=== PATIENT | female | born 1930 | race Caucasian/White ===

== ENCOUNTER → 2017-03-17 | Outpatient (CLI) | payer OTHER, BC ==
[~2017-03-17] MED LIST: ACET-1311 PO; AMLO-110 PO; ASPEC81 PO; CHOL100010 PO; HYZ/50125 PO; LEVO75TA33 PO; METO25TA56 PO; MULT-190 PO; PRLSR20 PO; SIMV20TA2 PO; SYMIN160 INH; TRAM-10 PO
--- NOTE | 2017-03-17 14:27 | DIAGNOSTIC IMAGING REPORT ---
LEG LENGTH STUDY (WHOLE LEG) CLINICAL HISTORY: LEG LENGTH DISCREPANCY, LUMBAGO COMPARISON STUDY: No previous studies for comparison. FINDINGS: When measuring from the femoral heads to the tibial plafonds, the right leg measures 87.6 cm and the left leg measures 87.5 cm. A right knee arthroplasty is noted. No suspicious osseous lesion is identified within visualized skeletal structures. No fracture is identified. IMPRESSION: 1. Total right leg length of 87.6 cm and total left leg length of 87.5 cm. 2. Status post total right knee arthroplasty. Electronically signed by: Jamel Naik M.D. 03/17/2017 2:26 PM Dictated Date/Time: 03/17/2017 2:22 PM
== END | disposition home or self-care (01) ==
LOC: C.RADBC 14:02
PROVIDERS: ATTEND Physician Assistant
DX: M21.70 Unequal limb length (acquired), unspecified site (principal); M54.5 Low back pain

== ENCOUNTER 2020-01-22 17:32 | Inpatient (IN) ==
--- NOTE | 2020-01-22 20:18 | XRay Report ---
SINGLE VIEW CHEST CLINICAL HISTORY: Hypertension. FINDINGS: An AP, portable, upright chest radiograph is compared to study dated 07/09/2010. The examinat ion is degraded by portable technique and patient rotation. The heart is top normal for projection n oting atherosclerotic calcification of the thoracic aorta. The pulmonary vasculature is noncongested. Chronic interstitial thickening is similar to previous. There is mild bibasilar scarring/atelectasis . The lungs and pleural spaces are otherwise clear. No pneumothorax is seen. The skeletal structures are osteopenic. The bony thorax is grossly intact. IMPRESSION: No active disease in the chest. ACT 112: Negative or not required by law. Electronically signed by: Benito Walter M.D. 01/22/2020 8:16 PM
[2020-01-22 21:13] LABS: Basophils # (auto) 0.02 K/uL (0-0.2); Basophils % (auto) 0.2 %; Eosinophils # (auto) 0.07 K/uL (0-0.5); Eosinophils % (auto) 0.6 %; Hematocrit (blood only) 39.1 % (37-47); Hemoglobin 13.1 g/dL (12.0-16.0); Immature Granulocytes # (auto) 0.03 K/uL (0.00-0.02); Immature Granulocytes % (auto) 0.3 %; Lymphocytes # (auto) 1.35 K/uL (1.2-3.4); Mean Corpuscular Hgb Conc 33.5 g/dL (32-36); Mean Corpuscular Volume 89.5 fL (80-100); Mean Platelet Volume 9.4 fL (7.4-10.4); Monocytes # (auto) 0.88 K/uL (0.11-0.59); Monocytes % (auto) 7.8 %; Neutrophils # (auto) 8.87 K/uL (1.4-6.5); Neutrophils % (auto) 79.1 %; Platelet Count 379 K/uL (130-400); RDW Coefficient of Variation 14.5 % (11.5-14.5); RDW Standard Deviation 47.7 fL (36.4-46.3); Red Blood Count 4.37 M/uL (4.2-5.4); White Blood Count 11.22 K/uL (4.8-10.8)
--- NOTE | 2020-01-22 21:13 | Emergency Department Note ---
Impression & Plan Hypertensive urgency, Acute UTI, Weakness, Leg swelling, Deep vein thrombosis of bilateral lower extremities ED Provider Note Provider: Rafael Leslie MD DATE OF SERVICE: 01/22/2020 CHIEF COMPLAINT: Hypertension, weakness HISTORY OF PRESENT ILLNESS: Patient is a 89-year-old female presenting here today complaining of some generalized weakness and elevated blood pressure. Patient states over the last several months she has been fighting with elevated blood pressures. For a long time was maintained on amlodipine. I was having some leg swelling and this was decreased but swelling worsened. Increase back to a baseline of 5 mg amlodipine and more recently started on Lasix. Has taken extra dose of Lasix every day for the last 4 days still with significant swelling left greater than right. Denies chest pain or shortness of breath. Denies trauma. Denies near syncope. Denies headache. Patient relates just some generalized fatigue type symptoms. Patient had a blood pressure check her doctor's office and came here for further care. REVIEW OF SYSTEMS: A total of 10 review of systems was obtained and negative except as stated above in the HPI. PAST MEDICAL HISTORY: As noted above MEDICATIONS: Reviewed home medications, no blood thinners SOCIAL HISTORY: Lives by herself, non-smoker PHYSICAL EXAM: GENERAL: alert and oriented in no acute distress on stretcher Head: normocephalic and atraumatic EYES: No injection, discharge or icterus. PERRL. NECK: Trachea midline. Supple. ENT: Mucous membranes pink and moist. LUNGS: Airway patent. No retractions. Breath sounds clear HEART: Regular rate and rhythm. No chest wall tenderness ABDOMEN: Soft and non-tender, without guarding or rebound. SKIN: Acyanotic, warm, dry, without rashes EXTREMITIES: Patient has 3+ swelling of the left lower extremity on 1-2+ right lower extremity. This extends to the knees. Does have stocking on over top of this. NEUROLOGICAL: No focal deficits. No aphasia. No facial droop or slurred speech. Normal strength and tone in the extremities. Sensation to gross touch normal. Ambulatory. EKG: Normal sinus rhythm 83 bpm. No PVC. No ST segment elevation or depression. Normal axis. Normal QTC. CONTINUOUS CARDIAC MONITORING: was ordered and showed a heart rate of 90 bpm in normal sinus rhythm Patient's hypertension was referred to the [facility] COURSE: 1944 Patient was first seen and H&P performed. 2027 Patient reassessed and updated. Patient was agreed with the plan for further observation care here in the hospital. [address] Rivera of the hospitalist service. Patient's laboratory studies and imaging reviewed. Differential includes Infection, dehydration, metabolic abnormality, hypo/hyperglycemia, electrolyte disturbance, anemia, hypoxia, cardiac sources, intracerebral event, toxicologic, neurologic, as well as other pathologies. IMPRESSION/MEDICAL DECISION MAKING: Patient presents complaining of generalized weakness for several days and has been utilize increased Lasix to help with some leg swelling which is a bit asymmetric. No trauma reported. No focal neurological deficits reported. Denies shortness of breath or chest pain. Patient's blood pressure significantly elevated. Chest x-ray is left without evidence of pulmonary edema. Ultrasound lower extremities to complete exclude DVT here. I doubt acute CVA or intracranial hemorrhage given her complaints. EKG without significant findings. Basic laboratory studies were ordered including thyroid studies to look for possible abnormality. Urine sample with some epithelials but questionable for possible UTI and may explain her weakness. Empirically given a dose of ceftriaxone here. No significant leukocytosis and no anemia. Do not believe she is septic. Albumin is not significantly low. Some CKD is appreciable. Ultrasound does show bilateral DVTs as noted below. Will defer anticoagulation to the hospitalist team but informed the patient. Given a small amount labetalol due to the significant blood pressure elevation. DIAGNOSIS: Weakness, hypertension, acute UTI, bilateral lower leg DVT DISPOSITION: Hospitalist will evaluate Patient was agreeable with this plan. Preliminary Findings Only See Final Report For Complete Findings US VENOUS BILATERAL LOWER EXTREMITIES: Small occlusive DVT in the right peroneal vein. Small nonocclusive DVT in the left peroneal vein. Radiologist: Flavio Mackey MD Study ready at 22:18 and initial results transmitted at 22:20 Past Med/Surg History Family History (Updated 09/04/19 @ 13:31 by Opal Parsons) Father Hearing loss Other No family history of adverse response to anesthesia No family history of bleeding disorder Social History (Updated 09/04/19 @ 13:32 by Opal Parsons) Smoking Status: Never smoker Second Hand Exposure: No; Hx Alcohol Use: No Hx Substance Use: No Preferred Language: Barbadian Communication Ability: Effective Visual Impairment: No Limitations Hearing Ability: Normal Wireline Field Operator Required: No Beliefs That Will Affect Care: None Current Living Situation: Alone current occupational status: retired 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 Home Meds Home Medications Medication Instructions Recorded Confirmed amlodipine 2.5 mg PO BID 04/05/18 01/22/20 budesonide-formoterol [Symbicort] 2 puff INHALATION HS 04/05/18 01/22/20 cholecalciferol (vitamin D3) 1,000 unit PO QAM 04/05/18 01/22/20 [Vitamin D3] levothyroxine 75 mcg PO QAM 04/05/18 01/22/20 omeprazole 20 mg PO QAM 04/05/18 01/22/20 biotin 1 mg capsule 1 mg PO DAILY 08/04/19 01/22/20 furosemide 20 mg PO DAILY PRN 01/22/20 01/22/20 peg 400-propylene glycol (PF) 1 drp OPHTHALMIC (EYE) DIRECTED 01/22/20 01/22/20 [Systane (PF)] PRN potassium chloride [Klor-Con M20] 20 meq PO DAILY 01/22/20 01/22/20 vit C-E-zinc [id number] 2 tab PO DAILY 01/22/20 01/22/20 [Ocuvite Eye Health] Results & Data (ED) Vital Signs Vital Signs - 24 hr 01/22/20 17:36 01/22/20 22:19 01/22/20 22:34 Temperature 37.2 C Temperature Source Oral Pulse Rate 88 90 91 H Pulse Rate from SpO2 Sensor 90 91 H Respiratory Rate 20 22 20 Respiratory Effort / Characteristics Non-Labored Spontaneous Respiratory Depth Normal Respiratory Pattern Regular Blood Pressure 202/84 H 219/104 H 215/100 H Blood Pressure Mean 123 152 138 Blood Pressure Position Sitting Pulse Oximetry 96 98 Oxygen Delivery Method Room Air Sepsis Recent Fever Within 48 Hours No Sepsis New/Unexplained Change in Mental Status N/A Sepsis Action Taken by Nursing No Action Required Laboratory Data Result diagrams: 01/22/20 21:00 01/22/20 21:00 Lab Results 01/22/20 01/22/20 01/22/20 Range/Units 21:00 21:00 21:00 WBC 11.22 H (4.8-10.8) K/uL RBC 4.37 (4.2-5.4) M/uL Hgb 13.1 (12.0-16.0) g/dL Hct 39.1 (37-47) % MCV 89.5 (80-100) fL MCH 30.0 (25-34) pg MCHC 33.5 (32-36) g/dL RDW Std Deviation 47.7 H (36.4-46.3) fL RDW Coeff of Dara 14.5 (11.5-14.5) % Plt Count 379 (130-400) K/uL MPV 9.4 (7.4-10.4) fL Immature Gran % (Auto) 0.3 % Neut % (Auto) 79.1 % Lymph % (Auto) 12.0 % [place] % (Auto) 7.8 % Eos % (Auto) 0.6 % Baso % (Auto) 0.2 % Neut # (Auto) 8.87 H (1.4-6.5) K/uL Lymph # (Auto) 1.35 (1.2-3.4) K/uL [place] # (Auto) 0.88 H (0.11-0.59) K/uL Eos # (Auto) 0.07 (0-0.5) K/uL Baso # (Auto) 0.02 (0-0.2) K/uL Immature Gran # (Auto) 0.03 H (0.00-0.02) K/uL Sodium 134 L (136-145) mmol/L Potassium 4.4 (3.5-5.1) mmol/L Chloride 99 (98-107) mmol/L Carbon Dioxide 30 (21-32) mmol/L Anion Gap 5.0 (3-11) BUN 37 H (7-18) mg/dl Creatinine 1.30 H (0.6-1.2) mg/dl Est Cr Clr Drug Dosing 25.3 ml/min Est GFR ( Amer) 42.1 Est GFR (Non-Af Amer) 36.3 BUN/Creatinine Ratio 28.2 H (10-20) Glucose 121 H (70-99) mg/dl Calcium 10.7 H (8.5-10.1) mg/dl Magnesium 2.0 (1.8-2.4) mg/dl Total Bilirubin 0.8 (0.2-1) mg/dl AST 15 (15-37) U/L ALT 21 (12-78) U/L Alkaline Phosphatase 88 (45-117) U/L Troponin I < 0.015 (0-0.045) ng/ml NT-Pro-B Natriuret Pep 673 (0-1800) pg/ml Total Protein 8.0 (6.4-8.2) gm/dl Albumin 3.9 (3.4-5.0) gm/dl Globulin 4.1 H (2.5-4.0) gm/dl Albumin/Globulin Ratio 1.0 (0.9-2) TSH 1.080 (0.300-4.500) uIu/ml Urine Color Yellow Urine Appearance Clear (Clear) Urine pH 5.0 (4.5-7.5) Ur Specific [place] 1.013 (1.000-1.030) Urine Protein Negative (Negative) Urine Glucose (UA) Negative (Negative) Urine Ketones Negative (Negative) Urine Blood Negative (Negative) Urine Nitrite Negative (Negative) Urine Bilirubin Negative (Negative) Urine Urobilinogen Negative (Negative) Ur Leukocyte Esterase 2+ H (Negative) Urine WBC (Auto) >30 H (0-5) /hpf Urine RBC (Auto) 0-4 (0-4) /hpf U Hyaline Cast (Auto) 1-5 (0-5) /lpf U Epithel Cells (Auto) 20-30 H (0-5) /lpf Urine Bacteria (Auto) Negative (Negative) Discharge Plan Visit Data Chief Complaint: Hypertension Stated Complaint: high bp ED Provider: Rafael Leslie Discharge Problem: Hypertensive urgency, Acute UTI, Weakness, Leg swelling, Deep vein thrombosis of bilateral lower extremities Patient Disposition: Being Evaluated by Hospitalist Condition: Good Forms Stand Alone Forms: My KTM Advance Prescriptions Prescriptions: No Action biotin 1 mg capsule 1 mg PO DAILY RF: 0 amlodipine 2.5 mg Tablet 2.5 mg PO BID RF: 0 levothyroxine 75 mcg Tablet 75 mcg PO QAM RF: 0 cholecalciferol (vitamin D3) [Vitamin D3] 1,000 unit Tablet 1,000 unit PO QAM RF: 0 budesonide-formoterol [Symbicort] 160-4.5 mcg/actuation Hfa Aerosol Inhaler 2 puff INHALATION HS RF: 0 omeprazole 20 mg Tablet,Delayed Release (Dr/Ec) 20 mg PO QAM RF: 0 potassium chloride [Klor-Con M20] 20 mEq tablet,ER particles/crystals 20 meq PO DAILY RF: 0 furosemide 20 mg tablet 20 mg PO DAILY PRN (Reason: Edema) RF: 0 Systane (PF) 0.4-0.3 % [place] 1 drp OPHTHALMIC (EYE) DIRECTED PRN (Reason: Dry Eyes) RF: 0 Ocuvite Eye Health 50 mg-15 unit- 4.5 mg-2.5 mg Tablet,Chewable 2 tab PO DAILY RF: 0 Referrals Referrals: Rudi Carter MD [Primary Care Provider] - Discharge Problem: Deep vein thrombosis of bilateral lower extremities Qualifiers: Affected thrombotic vein of extremity: peroneal Chronicity: acute Qualified Code(s): I82.453 - Acute embolism and thrombosis of peroneal vein, bilateral
[2020-01-22 21:15] LABS: Appearance Urine Clear (Clear); Bacteria Urine Automated Negative (Negative); Bilirubin Urine Negative (Negative); Blood Urine Negative (Negative); Color Urine Yellow; Epithelial Cell Urine Auto 20-30 /lpf (0-5); Glucose Urine UA Negative (Negative); Ketones Urine Negative (Negative); Leukocyte Esterase Urine 2+ (Negative); Nitrite Urine Negative (Negative); Protein Urine Negative (Negative); RBC Urine Automated 0-4 /hpf (0-4); Specific Gravity Urine 1.013 (1.000-1.030); Urobilinogen Urine Negative (Negative); WBC Urine Automated >30 /hpf (0-5)
[2020-01-22 21:34] LABS: Alanine Aminotransferase 21 U/L (12-78); Albumin Level 3.9 gm/dl (3.4-5.0); Aspartate Aminotransferase 15 U/L (15-37); BUN Creatinine Ratio 28.2 (10-20); Blood Urea Nitrogen 37 mg/dl (7-18); Calcium 10.7 mg/dl (8.5-10.1); Carbon Dioxide 30 mmol/L (21-32); Chloride 99 mmol/L (98-107); Creatinine Clr Calc Pharmacy 25.3 ml/min; Est GFR (African American) 42.1; Est GFR (Non-African American) 36.3; Glucose 121 mg/dl (70-99); Potassium 4.4 mmol/L (3.5-5.1); Sodium 134 mmol/L (136-145)
[2020-01-22 21:45] LABS: Alkaline Phosphatase 88 U/L (45-117); Bilirubin,Total 0.8 mg/dl (0.2-1); Globulin 4.1 gm/dl (2.5-4.0); NT Pro B Type Natriuretic Pept 673 pg/ml (0-1800); Troponin I < 0.015 ng/ml (0-0.045)
[2020-01-22] MEDS ORDERED: cefTRIAXone SODIUM 1,000 MG/50 ML BAG IV STA (22:28)
[2020-01-22] MEDS ORDERED: LABETALOL HCL IV 5 MG/ML 20ML IV STA (22:28)
[2020-01-22] MEDS ORDERED: AMLODIPINE BESYLATE 5 MG TAB PO STA (22:56)
[2020-01-22] MEDS ORDERED: SODIUM CHLORIDE 0.9% 1000ML 1,000 ML IV ONE (23:14)
[2020-01-22 23:23] LABS: Partial Thromboplastin Ratio 0.9; Partial Thromboplastin Time 24.5 Seconds (21.0-31.0); Prothrombin Time 10.3 Seconds (9.0-12.0)
--- NOTE | 2020-01-22 23:42 | Ultrasound Report ---
ULTRASOUND BILATERAL LOWER EXTREMITY VENOUS CLINICAL HISTORY: Lower extremity edema. COMPARISON STUDY: No priors. TECHNIQUE: Real-time, grayscale, and color Doppler sonography of the deep veins of the right and left lower extremity was performed from the inguinal crease to the calf. Compression and augmentation wer e utilized. FINDINGS: Right lower extremity: There is deep venous thrombosis identified in the calf within the peroneal vei ns. The remaining calf vessels are patent. The common femoral, superficial femoral, and popliteal vei ns are patent and normally compressible. The greater saphenous vein and the profunda femoris vein at the junction with the common femoral vein are clear. Left lower extremity: There is deep venous thrombosis identified in the calf within the peroneal vein s. The remaining calf vessels are patent. The common femoral, superficial femoral, and popliteal vei ns are patent and normally compressible. The greater saphenous vein and the profunda femoris vein at the junction with the common femoral vein are clear. IMPRESSION: Deep venous thrombosis is identified in the calf bilaterally. See above. ACT 112: Negative or not required by law. Electronically signed by: Benito Walter M.D. 01/22/2020 11:40 PM
[2020-01-22] MEDS ORDERED: HEPARIN 25000 UNIT/500 ML D5W IV ONE (23:43)
[2020-01-23] MEDS: HEPARIN SODIUM/DEXTROSE 25,000 UNITS/500 ML BAG IV SCH ×3 (00:19→21:51)
[2020-01-23 00:53] LABS: Phosphorus 2.5 mg/dl (2.5-4.9)
[2020-01-23] MEDS ORDERED: HydrALAZINE HCL 20 MG/ML VIAL IV STA (00:55)
[2020-01-23] MEDS ORDERED: AMLODIPINE BESYLATE 5 MG TAB PO ONE (00:55)
--- NOTE | 2020-01-23 00:56 | History & Physical Report ---
Date of Service January 23, 2020 Assessment & Plan (1) Hypertensive urgency: New onset bilateral LE DVT First occurrence ? 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 Check hemoglobin A1c Hold antibiotics for asymptomatic pyuria for now. PT OT eval DVT prophylaxis. IV heparin Full code Text document was generated using [employer] voice recognition software. It may contain grammatical or spelling errors. Kindly contact undersigned for clarification of any documentation item in question. History of Present Illness Chief Complaint: High blood pressure, increased leg swelling Primary Care Provider: Rudi Carter MD History obtained from patient and records. Medical history significant for hypertension, PVD, hypothyroidism, GERD, hiatal hernia status post surgery, osteoarthritis, IBS, constipation predominant, recurrent hypercalcemia on outpatient blood work, CRI (baseline creatinine 1.3), osteoarthritis. Patient has had bilateral leg swelling for a few months now. No response to outpatient diuretic trials as per PCP notes from last month. Some improvement with leg elevation, compression stockings, PT for lymphedema therapy. Blister development left foot dorsum secondary to wrapping as per patient. Left foot dorsum blister improving. SBP at home in the 2 weeks 120-200s. Patient compliant with medications. Denies unusual stress. Sporadic NSAID intake for body aches. No headache, no chest pain, no S OB. No abdominal pain, diarrhea, dysuria symptoms. Increased leg swelling without fever and chills. Not able to move as much from from knee and shoulder aches as per patient. At the ER, SBP 219/104 at highest. Labetalol 5 mg IV given at the ER. MEDICAL HISTORY: As above. Last mammogram was in 2008 (normal). Last colonoscopy was in 2003 which showed diverticulosis. SURGERIES: She had this, knee surgery. She had recent left shoulder surgery. She also had laparoscopic esophageal fundoplasty. Dental surgery, breast biopsy FAMILY HISTORY: Ovarian cancer, GERD PERSONAL/SOCIAL HISTORY: Nonsmoker. No chronic intake of alcoholic beverages. 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 She lives alone. Allergies Allergy/AdvReac Type Severity Reaction Status Date / Time dobutamine AdvReac Mild HEART Verified 01/22/20 20:07 SEIZURE??? Home Medications Home Medications Medication Instructions Recorded Confirmed Type amlodipine 2.5 mg PO BID 04/05/18 01/22/20 History budesonide-formoterol [Symbicort] 2 puff INHALATION HS 04/05/18 01/22/20 History cholecalciferol (vitamin D3) 1,000 unit PO QAM 04/05/18 01/22/20 History [Vitamin D3] levothyroxine 75 mcg PO QAM 04/05/18 01/22/20 History omeprazole 20 mg PO QAM 04/05/18 01/22/20 History biotin 1 mg capsule 1 mg PO DAILY 08/04/19 01/22/20 History furosemide 20 mg PO DAILY PRN 01/22/20 01/22/20 History peg 400-propylene glycol (PF) 1 drp OPHTHALMIC (EYE) DIRECTED 01/22/20 01/22/20 History [Systane (PF)] PRN potassium chloride [Klor-Con M20] 20 meq PO DAILY 01/22/20 01/22/20 History vit C-E-zinc [id number] 2 tab PO DAILY 01/22/20 01/22/20 History [[facility]] Past Med/Surg History Family History (Updated 09/04/19 @ 13:31 by Opal Parsons) Father Hearing loss Other No family history of adverse response to anesthesia No family history of bleeding disorder Social History (Updated 09/04/19 @ 13:32 by Opal Parsons) Smoking Status: Never smoker Second Hand Exposure: No; Do You Dip or Chew Tobacco: No; Tobacco Cessation Education Requested by Patient: No Hx Alcohol Use: No Hx Substance Use: No Preferred Language: [place]i Communication Ability: Effective Visual Impairment: No Limitations Hearing Ability: Normal International Marketing Intern Required: No Beliefs That Will Affect Care: None Current Living Situation: Alone current occupational status: retired 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 Other Information That Helps Us Care for You: No Feels Safe at Home: Yes Safety Concerns: Feels Safe At This Time Review of Systems Review of Systems: As per HPI, all 10 systems reviewed, all other ROS negative Physical Exam Physical Exam: GENERAL: Comfortable, pleasant, slightly hard of hearing, looks younger than stated age, no respiratory distress SKIN: Normal color, warm HEENT: Bespectacled, pink palpebral conjunctivae, no ptosis, dry buccal mucosa NECK : Supple, no tenderness CHEST : CTA, no tenderness HEART : RRR, no obvious murmurs ABDOMEN: Some distention, nontender EXTREMITIES : Minimal LE swelling w/tenderness (R>L), no other conspicuous deformities noted NEUROLOGIC : Coherent, no facial asymmetry, mild hearing impairment, no other gross focality Results & Data Results & Data ([facility]) Vital Signs (Past 12 Hours) Vital Signs Temp Pulse Resp BP Pulse Ox 01/23/20 00:30 84 18 167/82 H 92 01/23/20 00:15 84 18 172/86 H 92 01/22/20 23:45 84 18 176/79 H 91 01/22/20 23:30 83 20 175/77 H 91 01/22/20 23:17 83 20 177/90 H 93 01/22/20 23:00 83 18 191/86 H 90 01/22/20 22:49 82 19 188/83 H 90 01/22/20 22:34 91 H 20 215/100 H 01/22/20 22:19 90 22 219/104 H 98 01/22/20 17:36 37.2 C 88 20 202/84 H 96 Laboratory Results Laboratory Results WBC 11.22 K/uL (4.8-10.8) H 01/22/20 21:00 RBC 4.37 M/uL (4.2-5.4) 01/22/20 21:00 Hgb 13.1 g/dL (12.0-16.0) 01/22/20 21:00 Hct 39.1 % (37-47) 01/22/20 21:00 MCV 89.5 fL (80-100) 01/22/20 21:00 MCH 30.0 pg (25-34) 01/22/20 21:00 MCHC 33.5 g/dL (32-36) 01/22/20 21:00 RDW Std Deviation 47.7 fL (36.4-46.3) H 01/22/20 21:00 RDW Coeff of Dara 14.5 % (11.5-14.5) 01/22/20 21:00 Plt Count 379 K/uL (130-400) 01/22/20 21:00 MPV 9.4 fL (7.4-10.4) 01/22/20 21:00 Immature Gran % (Auto) 0.3 % 01/22/20 21:00 Neut % (Auto) 79.1 % 01/22/20 21:00 Lymph % (Auto) 12.0 % 01/22/20 21:00 [place] % (Auto) 7.8 % 01/22/20 21:00 Eos % (Auto) 0.6 % 01/22/20 21:00 Baso % (Auto) 0.2 % 01/22/20 21:00 Neut # (Auto) 8.87 K/uL (1.4-6.5) H 01/22/20 21:00 Lymph # (Auto) 1.35 K/uL (1.2-3.4) 01/22/20 21:00 [place] # (Auto) 0.88 K/uL (0.11-0.59) H 01/22/20 21:00 Eos # (Auto) 0.07 K/uL (0-0.5) 01/22/20 21:00 Baso # (Auto) 0.02 K/uL (0-0.2) 01/22/20 21:00 Immature Gran # (Auto) 0.03 K/uL (0.00-0.02) H 01/22/20 21:00 PT 10.3 Seconds (9.0-12.0) 01/22/20 21:00 INR 1.0 (0.9-1.1) 01/22/20 21:00 APTT 24.5 Seconds (21.0-31.0) 01/22/20 21:00 PTT Ratio 0.9 01/22/20 21:00 Sodium 134 mmol/L (136-145) L 01/22/20 21:00 Potassium 4.4 mmol/L (3.5-5.1) 01/22/20 21:00 Chloride 99 mmol/L (98-107) 01/22/20 21:00 Carbon Dioxide 30 mmol/L (21-32) 01/22/20 21:00 Anion Gap 5.0 (3-11) 01/22/20 21:00 BUN 37 mg/dl (7-18) H 01/22/20 21:00 Creatinine 1.30 mg/dl (0.6-1.2) H 01/22/20 21:00 Est Cr Clr Drug Dosing 25.3 ml/min 01/22/20 21:00 Est GFR ( Amer) 42.1 01/22/20 21:00 Est GFR (Non-Af Amer) 36.3 01/22/20 21:00 BUN/Creatinine Ratio 28.2 (10-20) H 01/22/20 21:00 Glucose 121 mg/dl (70-99) H 01/22/20 21:00 Calcium 10.7 mg/dl (8.5-10.1) H 01/22/20 21:00 Phosphorus 2.5 mg/dl (2.5-4.9) 01/22/20 21:00 Magnesium 2.0 mg/dl (1.8-2.4) 01/22/20 21:00 Total Bilirubin 0.8 mg/dl (0.2-1) 01/22/20 21:00 AST 15 U/L (15-37) 01/22/20 21:00 ALT 21 U/L (12-78) 01/22/20 21:00 Alkaline Phosphatase 88 U/L (45-117) 01/22/20 21:00 Troponin I < 0.015 ng/ml (0-0.045) 01/22/20 21:00 NT-Pro-B Natriuret Pep 673 pg/ml (0-1800) 01/22/20 21:00 Total Protein 8.0 gm/dl (6.4-8.2) 01/22/20 21:00 Albumin 3.9 gm/dl (3.4-5.0) 01/22/20 21:00 Globulin 4.1 gm/dl (2.5-4.0) H 01/22/20 21:00 Albumin/Globulin Ratio 1.0 (0.9-2) 01/22/20 21:00 TSH 1.080 uIu/ml (0.300-4.500) 01/22/20 21:00 Urine Color Yellow 01/22/20 21:00 Urine Appearance Clear (Clear) 01/22/20 21:00 Urine pH 5.0 (4.5-7.5) 01/22/20 21:00 Ur Specific [place] 1.013 (1.000-1.030) 01/22/20 21:00 Urine Protein Negative (Negative) 01/22/20 21:00 Urine Glucose (UA) Negative (Negative) 01/22/20 21:00 Urine Ketones Negative (Negative) 01/22/20 21:00 Urine Blood Negative (Negative) 01/22/20 21:00 Urine Nitrite Negative (Negative) 01/22/20 21:00 Urine Bilirubin Negative (Negative) 01/22/20 21:00 Urine Urobilinogen Negative (Negative) 01/22/20 21:00 Ur Leukocyte Esterase 2+ (Negative) H 01/22/20 21:00 Urine WBC (Auto) >30 /hpf (0-5) H 01/22/20 21:00 Urine RBC (Auto) 0-4 /hpf (0-4) 01/22/20 21:00 U Hyaline Cast (Auto) 1-5 /lpf (0-5) 01/22/20 21:00 U Epithel Cells (Auto) 20-30 /lpf (0-5) H 01/22/20 21:00 Urine Bacteria (Auto) Negative (Negative) 01/22/20 21:00 Diagnostic Findings Chest x-ray : No active disease EKG as per my interpretation : Rate 85, NSR, normal axis, T wave abnormalities septal leads LE venous Dopplers: Deep venous thrombosis is identified in the calf bilaterally. See above.
[2020-01-23] MEDS ORDERED: TRAMADOL HCL 50 MG TABLET PO PRN (01:46)
[2020-01-23] MEDS ORDERED: PROMETHAZINE HCL 12.5 MG in SODIUM CHLORIDE 0.9% 50 ML IV PRN (01:46)
[2020-01-23] MEDS ORDERED: ACETAMINOPHEN 325 MG TAB PO PRN (01:46)
[2020-01-23] MEDS: Heparin IV Standard *NO* Bolus IV SCH ×2 (02:11→02:12)
[2020-01-23 05:44] LABS: Basophils # (auto) 0.02 K/uL (0-0.2); Basophils % (auto) 0.2 %; Eosinophils # (auto) 0.08 K/uL (0-0.5); Eosinophils % (auto) 0.8 %; Hematocrit (blood only) 34.5 % (37-47); Hemoglobin 11.3 g/dL (12.0-16.0); Immature Granulocytes # (auto) 0.06 K/uL (0.00-0.02); Immature Granulocytes % (auto) 0.6 %; Lymphocytes # (auto) 1.48 K/uL (1.2-3.4); Lymphocytes % (auto) 14.1 %; Mean Corpuscular Hemoglobin 29.2 pg (25-34); Mean Corpuscular Hgb Conc 32.8 g/dL (32-36); Mean Corpuscular Volume 89.1 fL (80-100); Mean Platelet Volume 9.3 fL (7.4-10.4); Monocytes # (auto) 0.93 K/uL (0.11-0.59); Monocytes % (auto) 8.9 %; Neutrophils # (auto) 7.92 K/uL (1.4-6.5); Neutrophils % (auto) 75.4 %; Platelet Count 331 K/uL (130-400); RDW Coefficient of Variation 14.5 % (11.5-14.5); RDW Standard Deviation 47.4 fL (36.4-46.3); Red Blood Count 3.87 M/uL (4.2-5.4); White Blood Count 10.49 K/uL (4.8-10.8)
[2020-01-23] MEDS: LEVOTHYROXINE SODIUM 75 MCG TABLET PO SCH (06:04)
[2020-01-23 06:11] LABS: BUN Creatinine Ratio 30.1 (10-20); Calcium 9.5 mg/dl (8.5-10.1); Creatinine Clr Calc Pharmacy 33.3 ml/min; Est GFR (African American) 58.6; Est GFR (Non-African American) 50.5
[2020-01-23 06:12] LABS: Partial Thromboplastin Ratio 2.2; Prothrombin Time 10.8 Seconds (9.0-12.0)
[2020-01-23 06:14] LABS: Partial Thromboplastin Time 60.4 Seconds (21.0-31.0)
[2020-01-23 06:16] LABS: Estimated Average Glucose 131 mg/dl; Hemoglobin A1C 6.2 % (4.5-5.6)
[2020-01-23] MEDS: PANTOprazole 40 MG TAB PO SCH (07:45)
[2020-01-23] MEDS ORDERED: Nursing to Pharmacy Communication SCH (10:45)
--- NOTE | 2020-01-23 10:48 | Nephrology Consultation ---
Date of Consultation January 23, 2020 Assessment & Plan (1) Hypertensive urgency: Patient admitted with hypertensive urgency likely in setting of reducing her antihypertensive medications as well as occasional NSAID use. We discussed need to completely avoid NSAIDs as this can elevate blood pressure. Her blood pressure has improved on amlodipine hydralazine and labetalol overnight. No need to give antihypertensives today. Given main concern of leg edema, I recommend switching her to hydrochlorothiazide 25 mg daily starting tomorrow morning. We will stop amlodipine. Target systolic blood pressure of 140 or less. (2) Deep vein thrombosis of bilateral lower extremities: Patient with the bilateral calf DVT. She is now on heparin drip. Given improvement in her renal function, to be okay to take either Coumadin or novel anticoagulants. (3) AMOR (acute kidney injury): Patient admitted with a creatinine of 1.3 likely due to combination of Lasix and intermittent NSAID use. Creatinine is better today at 1. We discussed need to avoid NSAIDs. We can stop fluids at this point and monitor with daily BMP. History of Present Illness Reason for Consultation: Hypertensive urgency Requesting Physician: Alfred Brito MD Attending Physician: Alfred Brito MD History of Present Illness This is 89-year-old female with past medical history of hypertension, spinal stenosis, osteoarthritis, asthma, hypothyroidism and gastroesophageal reflux disease who was admitted on 01/22/2020 with hypertensive urgency and lower extremity leg swelling. She has had hypertension for many years previously treated with amlodipine 2.5 mg twice daily. About a month ago her amlodipine w as reduced to 2.5 mg daily due to worsening edema. She was also started on Lasix a week ago 40 mg daily with potassium chloride supplements. Her systolic blood pressure at home is been between 1 70-200. In the emergency room yesterday systolic blood pressure was in the 180s. She was found to have bilateral calf DVT and is now on heparin drip. She received IV hydralazine 10 mg, IV labetalol 5 mg in the night and a total of 10 mg of amlodipine. Her blood pressure dropped to low 100s and now systolic of 130. She is complaining of weakness but no dizziness. She still has leg edema. She has chronic shortness of breath from asthma. She is only allergic to dobutamine. She lives alone in [place]. Neighbors help with the groceries. She also buys groceries online. She uses Aleve as needed for osteoarthritis Allergies Allergy/AdvReac Type Severity Reaction Status Date / Time dobutamine AdvReac Mild HEART Verified 01/22/20 20:07 SEIZURE??? Home Medications Home Medications Medication Instructions Recorded Confirmed Type amlodipine 2.5 mg PO BID 04/05/18 01/22/20 History budesonide-formoterol [Symbicort] 2 puff INHALATION HS 04/05/18 01/22/20 History cholecalciferol (vitamin D3) 1,000 unit PO QAM 04/05/18 01/22/20 History [Vitamin D3] levothyroxine 75 mcg PO QAM 04/05/18 01/22/20 History omeprazole 20 mg PO QAM 04/05/18 01/22/20 History biotin 1 mg capsule 1 mg PO DAILY 08/04/19 01/22/20 History furosemide 20 mg PO DAILY PRN 01/22/20 01/22/20 History peg 400-propylene glycol (PF) 1 drp OPHTHALMIC (EYE) DIRECTED 01/22/20 01/22/20 History [Systane (PF)] PRN potassium chloride [Klor-Con M20] 20 meq PO DAILY 01/22/20 01/22/20 History vit C-E-zinc mdx-bfwado-ojwwhy 2 tab PO DAILY 01/22/20 01/22/20 History [Ocuvite Eye Health] Patient History Family History (Updated 09/04/19 @ 13:31 by Opal Parsons) Father Hearing loss Other No family history of adverse response to anesthesia No family history of bleeding disorder Social History (Updated 09/04/19 @ 13:32 by Opal Parsons) Smoking Status: Never smoker Second Hand Exposure: No; Do You Dip or Chew Tobacco: No; Tobacco Cessation Education Requested by Patient: No Hx Alcohol Use: No Hx Substance Use: No Preferred Language: Sami Communication Ability: Effective Visual Impairment: No Limitations Hearing Ability: Normal Finishing Frame Runner Required: No Beliefs That Will Affect Care: None Current Living Situation: Alone current occupational status: retired current occupation: [employer] Other Information That Helps Us Care for You: No Feels Safe at Home: Yes Safety Concerns: Feels Safe At This Time Review of Systems Review of Systems: All systems reviewed & are unremarkable except as noted in HPI & below Physical Exam Physical Exam: General exam: Appears comfortable, no acute distress HEENT: Pupils are equal and reactive to light Neck: No JVD, neck is supple trachea is midline Respiratory system: Clear breath sounds bilaterally. Gastrointestinal: Abdomen is soft, non distended, non tender, bowel sounds are present CVS: Regular rate and rhythm. No murmurs, rubs or gallops Musculoskeletal: No joint or muscle tenderness Extremities: Non tender, 1+ edema, peripheral pulses are present Neuro: Oriented x3, no tremors, no focal neurological deficits Skin: No rashes Results & Data Vital Signs (Past 12 Hours) Vital Signs Temp Pulse Pulse Resp BP BP Pulse Ox 01/23/20 07:24 36.5 C 79 20 138/71 92 01/23/20 04:00 36.5 C 89 15 117/64 96 01/23/20 02:18 90 01/23/20 01:47 36.6 C 90 16 94/58 L 94 01/23/20 01:32 90 20 156/68 H 94 01/23/20 01:23 88 20 161/76 H 95 01/23/20 01:15 92 H 20 198/93 H 93 01/23/20 01:00 87 20 181/86 H 93 01/23/20 00:53 87 18 197/93 H 93 01/23/20 00:30 84 18 167/82 H 92 01/23/20 00:15 84 18 172/86 H 92 01/22/20 23:45 84 18 176/79 H 91 01/22/20 23:30 83 20 175/77 H 91 01/22/20 23:17 83 20 177/90 H 93 01/22/20 23:00 83 18 191/86 H 90 01/22/20 22:49 82 19 188/83 H 90 Laboratory Results 01/23/20 05:23 01/22/20 01/22/20 01/23/20 21:00 21:00 05:23 WBC 11.22 H 10.49 RBC 4.37 3.87 L MCV 89.5 89.1 MCH 30.0 29.2 MCHC 33.5 32.8 RDW Std Deviation 47.7 H 47.4 H RDW Coeff of Dara 14.5 14.5 Plt Count 379 331 MPV 9.4 9.3 Phosphorus 2.5 Albumin 3.9 (1) Deep vein thrombosis of bilateral lower extremities Affected thrombotic vein of extremity: peroneal Chronicity: acute Qualified Code(s): I82.453 - Acute embolism and thrombosis of peroneal vein, bilateral
[2020-01-23] MEDS ORDERED: LABETALOL HCL IV 5 MG/ML 20ML IV STA (15:57)
[2020-01-23] MEDS ORDERED: hydroCHLOROthiazide 25 MG TAB PO ONE (16:00)
--- NOTE | 2020-01-23 18:50 | Communication Note ---
Date of Service: January 23, 2020 Chart reviewed, patient seen and examined at the bedside Resting comfortably in bed, somewhat weak, states she feels tired, had a long night But feels improved compared to yesterday Denies chest pain, shortness of breath, palpitations, dizziness No headache Minimal leg discomfort No signs of bleeding No other symptoms Vital signs noted and reviewed Not in distress, speaking sentences with no effort Normal rate rate regular rhythm no murmurs Clear breath sounds bilaterally Abdomen soft nontender Bilateral lower extremity, grade 1 lower extremity edema, with no warmth/tenderness/erythema No gross focal neurologic deficits Labs noted and reviewed Assessment and plan: #1 bilateral lower extremity DVT, bilateral calf Presented with several week history of lower leg edema Given distal DVTs but with significant edema of the lower extremities, continue IV heparin for today Plan to transition to Coumadin or NOAC need to discuss with bobbin winder tender regarding treatment option for patient #2 uncontrolled hypertension Last Marker consulted Recommend to start HCTZ today Other diagnoses and plan per Dr. Lilly's notes Alfred Brito MD
[2020-01-23] MEDS: FLUTICASONE/VILANTEROL 100/25MCG 14 PUFFS/INHALER INH SCH (21:23)
[2020-01-24] MEDS: LEVOTHYROXINE SODIUM 75 MCG TABLET PO SCH (06:00)
[2020-01-24 06:17] LABS: Basophils # (auto) 0.02 K/uL (0-0.2); Basophils % (auto) 0.2 %; Eosinophils # (auto) 0.15 K/uL (0-0.5); Eosinophils % (auto) 1.6 %; Hematocrit (blood only) 32.4 % (37-47); Hemoglobin 10.7 g/dL (12.0-16.0); Immature Granulocytes # (auto) 0.04 K/uL (0.00-0.02); Immature Granulocytes % (auto) 0.4 %; Lymphocytes # (auto) 1.57 K/uL (1.2-3.4); Lymphocytes % (auto) 17.2 %; Mean Corpuscular Hemoglobin 29.1 pg (25-34); Mean Platelet Volume 9.7 fL (7.4-10.4); Monocytes # (auto) 0.84 K/uL (0.11-0.59); Monocytes % (auto) 9.2 %; Neutrophils # (auto) 6.52 K/uL (1.4-6.5); Neutrophils % (auto) 71.4 %; Platelet Count 304 K/uL (130-400); RDW Coefficient of Variation 14.4 % (11.5-14.5); RDW Standard Deviation 46.5 fL (36.4-46.3); Red Blood Count 3.68 M/uL (4.2-5.4); White Blood Count 9.14 K/uL (4.8-10.8)
[2020-01-24 06:39] LABS: Partial Thromboplastin Ratio > 5.0
[2020-01-24 06:44] LABS: Partial Thromboplastin Time > 139.0 Seconds (21.0-31.0)
[2020-01-24 06:47] LABS: BUN Creatinine Ratio 25.2 (10-20); Calcium 9.3 mg/dl (8.5-10.1); Creatinine Clr Calc Pharmacy 27.7 ml/min; Est GFR (African American) 46.9; Est GFR (Non-African American) 40.4; Potassium 3.7 mmol/L (3.5-5.1)
[2020-01-24] MEDS: hydroCHLOROthiazide 25 MG TAB PO SCH (07:27)
[2020-01-24] MEDS: PANTOprazole 40 MG TAB PO SCH (07:27)
[2020-01-24] MEDS: FLUTICASONE/VILANTEROL 100/25MCG 14 PUFFS/INHALER INH SCH ×2 (07:28→20:18)
[2020-01-24 07:38] LABS: Partial Thromboplastin Ratio > 5.0
[2020-01-24 07:58] LABS: Partial Thromboplastin Time > 139.0 Seconds (21.0-31.0)
[2020-01-24] MEDS ORDERED: AMLODIPINE BESYLATE 5 MG TAB PO SCH (09:00)
[2020-01-24 09:05] LABS: Partial Thromboplastin Ratio 2.7
[2020-01-24 09:13] LABS: Partial Thromboplastin Time 76.7 Seconds (21.0-31.0)
[2020-01-24] MEDS ORDERED: WARFARIN SOD 5 MG TAB PO SCH (09:30)
--- NOTE | 2020-01-24 10:00 | Hospitalist Progress Note ---
Date of Service January 24, 2020 Assessment & Plan (1) Deep vein thrombosis of bilateral lower extremities: Admitted with bilateral lower extremity swelling Ultrasound shows bilateral lower extremity DVT No prior history of blood clots, no known family history of coagulopathy Patient reports of having bilateral lower extremity wrappings/Unna boot 3 weeks ago On IV heparin, started on Coumadin As per current guideline patient will need total 5 days of parenteral anticoagulation: IV heparin versus subcu Lovenox With overlap of the therapeutic INR with Coumadin for 48 hours Will need at least 3-6 months of anticoagulation therapy Order for Coumadin 5 mg p.o. daily PT/INR to be checked (2) Hypertensive urgency: Blood pressure was elevated on admission Possible secondary to NSAID use Norvasc discontinued given bilateral lower extremity chronic edema Patient is started on hydrochlorothiazide 25 mg daily Target systolic blood pressure 140 or less IV labetalol 5 mg as needed for systolic blood pressure above 160 Acute renal failure with CKD stage III Possible secondary to NSAID use, patient has severe arthritis with spinal stenosis has been taking Aleve on a daily basis Given IV fluid creatinine improved to baseline Appreciate input from nephrology Patient is counseled on repeated time to avoid NSAIDs CODE STATUS: Full code DVT prophylaxis: IV heparin/Coumadin Disposition: Expected to be discharged home when medically stable Admission and Anticipated Discharge Date Admission Date: January 23, 2020 Subjective Patient denies of any chest pain, no shortness of breath No pain or discomfort on bilateral lower extremity No cough, no fever or chills Review of Systems Review of Systems: All systems reviewed & are unremarkable except as noted in HPI & below Physical Exam Constitutional: WD/WN, vitals as above no acute distress Eyes: PERRL, conjunctivae normal, anicteric sclerae ENMT: external ear and nose normal, oropharynx normal Neck: trachea midline, no thyromegaly Respiratory: normal respiratory effort, lungs clear to auscultation Cardiovascular: RRR, no murmur, no edema Gastrointestinal (Abdomen): Percussion/Palpation: abdomen soft; abdomen nontender Musculoskeletal: Bilateral lower extremity edema with chronic venous stasis change, no calf tenderness Neurologic: PERRL, EOMI, accommodation nl, no face palsy, no dysarthria Psychiatric: A+Ox3, euthymic affect Results & Data Results & Data ([facility]) Vital Signs (Past 12 Hours) Vital Signs Temp Pulse Pulse Resp BP BP Pulse Ox 01/24/20 06:58 36.5 C 67 18 148/68 H 91 01/24/20 03:09 36.7 C 66 17 128/56 L 93 01/24/20 00:00 75 01/23/20 23:27 36.9 C 75 16 137/72 95 (1) Deep vein thrombosis of bilateral lower extremities Affected thrombotic vein of extremity: peroneal Chronicity: acute Qualified Code(s): I82.453 - Acute embolism and thrombosis of peroneal vein, bilateral
--- NOTE | 2020-01-24 10:13 | Nephrology Progress Note ---
Date of Service January 24, 2020 Assessment & Plan (1) Hypertensive urgency: Patient admitted with hypertensive urgency likely in setting of reducing her antihypertensive medications as well as occasional NSAID use. We discussed need to completely avoid NSAIDs as this can elevate blood pressure. Her blood pressure has improved. Given main concern of leg edema, We will stop amlodipine. Target systolic blood pressure of 140's or less. -Continue hydrochlorothiazide 25 mg daily. -IV labetalol 5 mg as needed for systolic above 160 (2) Deep vein thrombosis of bilateral lower extremities: Patient with the bilateral calf DVT. She is now on heparin drip. Given improvement in her renal function, to be okay to take either Coumadin or novel anticoagulants. (3) AMOR (acute kidney injury): Patient admitted with a creatinine of 1.3 likely due to combination of Lasix and intermittent NSAID use. Creatinine is stable at 1.1. We discussed need to avoid NSAIDs. We can stop fluids at this point and monitor with daily BMP. Admission and Anticipated Discharge Date Admission Date: January 23, 2020 Subjective She feels better today. No shortness of breath or pain. Blood pressure is better in the 140s systolic. Still has left leg swelling. He is off heparin drip this morning due to high PTT Review of Systems Review of Systems: All systems reviewed & are unremarkable except as noted in HPI & below Physical Exam Physical Exam: General exam: Appears comfortable, no acute distress HEENT: Pupils are equal and reactive to light Neck: No JVD, neck is supple trachea is midline Respiratory system: Clear breath sounds bilaterally. Gastrointestinal: Abdomen is soft, non distended, non tender, bowel sounds are present CVS: Regular rate and rhythm. No murmurs, rubs or gallops Musculoskeletal: No joint or muscle tenderness Extremities: Non tender, no edema, peripheral pulses are present Neuro: Oriented, no tremors, no focal neurological deficits Skin: No rashes Results & Data ([facility]) Vital Signs (Past 12 Hours) Vital Signs Temp Pulse Pulse Resp BP BP Pulse Ox 01/24/20 06:58 36.5 C 67 18 148/68 H 91 01/24/20 03:09 36.7 C 66 17 128/56 L 93 01/24/20 00:00 75 01/23/20 23:27 36.9 C 75 16 137/72 95 (1) Deep vein thrombosis of bilateral lower extremities Affected thrombotic vein of extremity: peroneal Chronicity: acute Qualified Code(s): I82.453 - Acute embolism and thrombosis of peroneal vein, bilateral
--- NOTE | 2020-01-24 11:49 | Electrocardiogram Report ---
Test Reason : Blood Pressure : / mmHG Vent. Rate : 083 BPM Atrial Rate : 083 BPM P-R Int : 170 ms QRS Dur : 076 ms QT Int : 372 ms P-R-T Axes : 070 023 049 degrees QTc Int : 437 ms Poor data quality, interpretation may be adversely affected Normal sinus rhythm Low voltage QRS Normal ECG When compared with ECG of 25-SEP-2010 13:53, No significant change was found Confirmed by Getachew Bear ([id number]) on 01/24/2020 11:49:13 AM Referred By: REFERRED SELF Confirmed By:Getachew Bear
[2020-01-24 15:59] LABS: Partial Thromboplastin Ratio 2.8
[2020-01-24] MEDS ORDERED: LABETALOL HCL IV 5 MG/ML 20ML IV PRN (16:04)
[2020-01-24 16:31] LABS: Partial Thromboplastin Time 76.9 Seconds (21.0-31.0)
[2020-01-24 23:37] LABS: Partial Thromboplastin Ratio 2.6
[2020-01-24 23:43] LABS: Partial Thromboplastin Time 72.8 Seconds (21.0-31.0)
[2020-01-25] MEDS ORDERED: HydrALAZINE HCL 20 MG/ML VIAL IV PRN (01:44)
[2020-01-25] MEDS: HEPARIN SODIUM/DEXTROSE 25,000 UNITS/500 ML BAG IV SCH (05:00)
[2020-01-25 06:00] LABS: Basophils # (auto) 0.02 K/uL (0-0.2); Basophils % (auto) 0.2 %; Eosinophils # (auto) 0.19 K/uL (0-0.5); Eosinophils % (auto) 2.2 %; Hematocrit (blood only) 31.2 % (37-47); Hemoglobin 10.1 g/dL (12.0-16.0); Immature Granulocytes # (auto) 0.03 K/uL (0.00-0.02); Immature Granulocytes % (auto) 0.4 %; Lymphocytes # (auto) 1.31 K/uL (1.2-3.4); Lymphocytes % (auto) 15.4 %; Mean Corpuscular Hemoglobin 28.5 pg (25-34); Mean Corpuscular Hgb Conc 32.4 g/dL (32-36); Mean Corpuscular Volume 88.1 fL (80-100); Mean Platelet Volume 9.4 fL (7.4-10.4); Monocytes # (auto) 0.86 K/uL (0.11-0.59); Monocytes % (auto) 10.1 %; Neutrophils # (auto) 6.12 K/uL (1.4-6.5); Neutrophils % (auto) 71.7 %; Platelet Count 293 K/uL (130-400); RDW Coefficient of Variation 14.3 % (11.5-14.5); RDW Standard Deviation 46.4 fL (36.4-46.3); Red Blood Count 3.54 M/uL (4.2-5.4); White Blood Count 8.53 K/uL (4.8-10.8)
[2020-01-25] MEDS: LEVOTHYROXINE SODIUM 75 MCG TABLET PO SCH (06:18)
[2020-01-25 06:21] LABS: INR 1.1 (0.9-1.1); Partial Thromboplastin Ratio 2.5; Prothrombin Time 11.9 Seconds (9.0-12.0)
[2020-01-25 06:40] LABS: BUN Creatinine Ratio 26.2 (10-20); Calcium 9.1 mg/dl (8.5-10.1); Creatinine Clr Calc Pharmacy 29.1 ml/min; Est GFR (African American) 49.9; Est GFR (Non-African American) 43.1; Partial Thromboplastin Time 71.1 Seconds (21.0-31.0); Potassium 3.6 mmol/L (3.5-5.1)
[2020-01-25] MEDS: PANTOprazole 40 MG TAB PO SCH (08:54)
[2020-01-25] MEDS: hydroCHLOROthiazide 25 MG TAB PO SCH (08:55)
[2020-01-25] MEDS: AMLODIPINE BESYLATE 5 MG TAB PO SCH (09:12)
--- NOTE | 2020-01-25 11:06 | Nephrology Progress Note ---
Date of Service January 25, 2020 Assessment & Plan (1) Hypertensive urgency: Patient admitted with hypertensive urgency likely in setting of reducing her antihypertensive medications as well as occasional NSAID use. We discussed need to completely avoid NSAIDs as this can elevate blood pressure. Her blood pressure has improved but high in the afternoon. Target systolic blood pressure of 140's or less. -Continue hydrochlorothiazide 25 mg daily. -We will add amlodipine 5 mg daily today -IV labetalol 5 mg as needed for systolic above 160 (2) Deep vein thrombosis of bilateral lower extremities: Patient with the bilateral calf DVT. She is now on heparin drip. Patient will likely be transitioned to Coumadin with Lovenox taper. (3) AMOR (acute kidney injury): Patient admitted with a creatinine of 1.3 likely due to combination of Lasix and intermittent NSAID use. Creatinine is stable at 1.1. We discussed need to avoid NSAIDs. -monitor with daily BMP. Admission and Anticipated Discharge Date Admission Date: January 23, 2020 Subjective Patient feels better today. No shortness of breath or pain. She is being transitioned to Coumadin and Lovenox taper. Blood pressure remains high in the afternoons Review of Systems Review of Systems: All systems reviewed & are unremarkable except as noted in HPI & below Physical Exam Physical Exam: General exam: Appears comfortable, no acute distress HEENT: Pupils are equal and reactive to light Neck: No JVD, neck is supple trachea is midline Respiratory system: Clear breath sounds bilaterally. Gastrointestinal: Abdomen is soft, non distended, non tender, bowel sounds are present CVS: Regular rate and rhythm. No murmurs, rubs or gallops Musculoskeletal: No joint or muscle tenderness Extremities: Non tender, no edema, peripheral pulses are present Neuro: Oriented, no tremors, no focal neurological deficits Skin: No rashes Results & Data ([facility]) Vital Signs (Past 12 Hours) Vital Signs Temp Pulse Resp BP BP Pulse Ox 01/25/20 07:45 36.6 C 74 15 159/71 H 94 01/25/20 04:55 36.5 C 68 12 145/68 H 94 01/25/20 02:06 171/76 H 01/25/20 00:09 177/76 H 01/24/20 23:56 36.8 C 77 14 172/78 H 92 Laboratory Results 01/25/20 05:44 01/25/20 05:44 WBC 8.53 RBC 3.54 L MCV 88.1 MCH 28.5 MCHC 32.4 RDW Std Deviation 46.4 H RDW Coeff of Dara 14.3 Plt Count 293 MPV 9.4 (1) Deep vein thrombosis of bilateral lower extremities Affected thrombotic vein of extremity: peroneal Chronicity: acute Qualified Code(s): I82.453 - Acute embolism and thrombosis of peroneal vein, bilateral
[2020-01-25 13:20] LABS: Partial Thromboplastin Time 54.7 Seconds (21.0-31.0)
[2020-01-25] MEDS ORDERED: ENOXAPARIN 1 MG/KG SC SCH (15:15)
[2020-01-25] MEDS ORDERED: ENOXAPARIN 80 MG/0.8 ML SYR SQ SCH (15:30)
[2020-01-25] MEDS: WARFARIN SOD 5 MG TAB PO SCH (16:10)
--- NOTE | 2020-01-25 18:56 | Hospitalist Progress Note ---
Date of Service January 25, 2020 Assessment & Plan (1) Deep vein thrombosis of bilateral lower extremities: Admitted with bilateral lower extremity swelling Ultrasound shows bilateral lower extremity DVT No prior history of blood clots, no known family history of coagulopathy Patient reports of having bilateral lower extremity wrappings/Unna boot 3 weeks ago On IV heparin, started on Coumadin As per current guideline patient will need total 5 days of parenteral anticoagulation: IV heparin versus subcu Lovenox With overlap of the therapeutic INR with Coumadin for 48 hours Will need at least 3-6 months of anticoagulation therapy Order for Coumadin 5 mg p.o. daily Iv heparin D/ca started on SC lovenox theraputic dose (2) Hypertensive urgency: BP improved Patient is started on hydrochlorothiazide 25 mg daily Target systolic blood pressure 140 or less IV labetalol 5 mg as needed for systolic blood pressure above 160 appreciate nephrology input Acute renal failure with CKD stage III Possible secondary to NSAID use, patient has severe arthritis with spinal stenosis has been taking Aleve on a daily basis cr improved to baseline IVF d/ca Appreciate input from nephrology Patient is counseled on repeated time to avoid NSAIDs CODE STATUS: Full code DVT prophylaxis: IV heparin/Coumadin Disposition: Expected to be discharged home when medically stable Admission and Anticipated Discharge Date Admission Date: January 23, 2020 Subjective offers no complain tolerating anticoagulation without any bleeding complication no fever or chills no pain or discomfort on lower ex note to have ankle swelling after sitting up on chair , without elevating feet for few hours Physical Exam Constitutional: WD/WN, vitals as above no acute distress Eyes: PERRL, conjunctivae normal, anicteric sclerae ENMT: external ear and nose normal, oropharynx normal Neck: trachea midline, no thyromegaly Respiratory: normal respiratory effort, lungs clear to auscultation Cardiovascular: RRR, no murmur, no edema Gastrointestinal (Abdomen): Percussion/Palpation: abdomen soft; abdomen nontender Neurologic: PERRL, EOMI, accommodation nl, no face palsy, no dysarthria Psychiatric: A+Ox3, euthymic affect Results & Data Results & Data ([facility]) Vital Signs (Past 12 Hours) Vital Signs Temp Pulse Resp BP Pulse Ox 01/25/20 16:08 36.6 C 76 24 152/66 H 95 01/25/20 07:45 36.6 C 74 15 159/71 H 94 (1) Deep vein thrombosis of bilateral lower extremities Affected thrombotic vein of extremity: peroneal Chronicity: acute Qualified Code(s): I82.453 - Acute embolism and thrombosis of peroneal vein, bilateral
[2020-01-25] MEDS: FLUTICASONE/VILANTEROL 100/25MCG 14 PUFFS/INHALER INH SCH (20:32)
[2020-01-26] MEDS: LEVOTHYROXINE SODIUM 75 MCG TABLET PO SCH (05:32)
[2020-01-26 06:26] LABS: Basophils # (auto) 0.02 K/uL (0-0.2); Basophils % (auto) 0.2 %; Eosinophils # (auto) 0.25 K/uL (0-0.5); Eosinophils % (auto) 2.7 %; Hematocrit (blood only) 31.1 % (37-47); Hemoglobin 10.6 g/dL (12.0-16.0); Immature Granulocytes # (auto) 0.05 K/uL (0.00-0.02); Immature Granulocytes % (auto) 0.5 %; Lymphocytes # (auto) 1.38 K/uL (1.2-3.4); Mean Corpuscular Hemoglobin 29.8 pg (25-34); Mean Corpuscular Hgb Conc 34.1 g/dL (32-36); Mean Corpuscular Volume 87.4 fL (80-100); Mean Platelet Volume 9.7 fL (7.4-10.4); Monocytes # (auto) 0.83 K/uL (0.11-0.59); Neutrophils # (auto) 6.66 K/uL (1.4-6.5); Neutrophils % (auto) 72.6 %; Platelet Count 277 K/uL (130-400); RDW Coefficient of Variation 14.3 % (11.5-14.5); RDW Standard Deviation 45.8 fL (36.4-46.3); Red Blood Count 3.56 M/uL (4.2-5.4); White Blood Count 9.19 K/uL (4.8-10.8)
[2020-01-26 06:38] LABS: INR 1.4 (0.9-1.1); Partial Thromboplastin Ratio 1.1; Prothrombin Time 14.2 Seconds (9.0-12.0)
[2020-01-26 06:49] LABS: BUN Creatinine Ratio 33.5 (10-20); Calcium 9.3 mg/dl (8.5-10.1); Est GFR (Non-African American) 51.8; Potassium 3.7 mmol/L (3.5-5.1)
[2020-01-26] MEDS: hydroCHLOROthiazide 25 MG TAB PO SCH (08:30)
[2020-01-26] MEDS: AMLODIPINE BESYLATE 5 MG TAB PO SCH (08:30)
[2020-01-26] MEDS: PANTOprazole 40 MG TAB PO SCH (08:30)
--- NOTE | 2020-01-26 10:13 | Communication Note ---
Date of Service: January 26, 2020 Bilateral lower ext DVT : pt is started on SC Lovenox bridge with Coumadin INR 1.4 today ( goal 2-3 ) dose adjusted 1.5 mg /kg body wt Q 24 hrs needs 2 more days of bridge therapy ( to make total 5 days of parenteral bridge ) Lovenox script sent to pt's pharmacy : co pay $12 will continue with Coumadin 5 mg PO daily will be followed at Coumad[facility] clinic at [facility] updated pt will be given script for PT/INR check on wednesday01/29/20 script for rolling walker given pt will benefit with home PT -will update CM pt will be discharged home later today Paula Arnold MD
--- NOTE | 2020-01-26 10:39 | Hospitalist Progress Note ---
Date of Service January 26, 2020 Assessment & Plan (1) Deep vein thrombosis of bilateral lower extremities: Admitted with bilateral lower extremity swelling Ultrasound shows bilateral lower extremity cough vein thrombosis No prior history of blood clots, no known family history of coagulopathy Patient reports of having bilateral lower extremity wrappings/Unna boot 3 weeks ago Was on on IV heparin, started on Coumadin As per current guideline patient will need total 5 days of parenteral anti coagulation: IV heparin versus subcu Lovenox With overlap of the therapeutic INR with Coumadin for 48 hours Will need at least 3-6 months of anticoagulation therapy started on SC lovenox theraputic dose /continue Coumadin 5 mg daily Prescription sent to patient's pharmacy (2) Hypertensive urgency: BP remains elevated Patient was started on hydrochlorothiazide 25 mg daily HCTZ discontinued as patient noted to develop hyponatremia sodium 134 today Discussed with nephrology Norvasc 5 mg p.o. daily resumed Added hydralazine 3 times daily Target systolic blood pressure 140 or less IV labetalol 5 mg as needed for systolic blood pressure above 160 appreciate nephrology input Acute renal failure with CKD stage III Possible secondary to NSAID use, patient has severe arthritis with spinal stenosis has been taking Aleve on a daily basis cr improved to baseline Appreciate input from nephrology Patient is counseled on repeated time to avoid NSAIDs CODE STATUS: Full code DVT prophylaxis: Subcu heparin/Lovenox Disposition: Expected to be discharged home when medically stable Admission and Anticipated Discharge Date Admission Date: January 23, 2020 Subjective pt 's BP remains poorly controlled will need continued hospital stay for BP management Tolerating anticoagulation with subcu Lovenox, Coumadin will No bleeding complication No complaint of chest pain, shortness of breath, no fever or chills Patient is able to ambulate using walker dependently in the room Physical Exam Constitutional: WD/WN, vitals as above no acute distress Eyes: PERRL, conjunctivae normal, anicteric sclerae ENMT: external ear and nose normal, oropharynx normal Neck: trachea midline, no thyromegaly Respiratory: normal respiratory effort, lungs clear to auscultation Cardiovascular: Rate/Rhythm: regular rate and regular rhythm Extremities: + calf tenderness and + edema Gastrointestinal (Abdomen): Percussion/Palpation: abdomen soft; abdomen nontender Musculoskeletal: By lateral lower extremity pitting edema, worse on the left ankle Neurologic: PERRL, EOMI, accommodation nl, no face palsy, no dysarthria Psychiatric: A+Ox3, euthymic affect Results & Data Results & Data ([facility]) Vital Signs (Past 12 Hours) Vital Signs Temp Pulse Resp BP BP Pulse Ox 01/26/20 08:16 158/72 H 01/26/20 07:10 36.6 C 68 16 171/63 H 95 01/26/20 04:30 36.8 C 73 14 159/71 H 95 01/25/20 23:49 36.9 C 71 20 145/69 H 92 (1) Deep vein thrombosis of bilateral lower extremities Affected thrombotic vein of extremity: peroneal Chronicity: acute Qualified Code(s): I82.453 - Acute embolism and thrombosis of peroneal vein, bilateral
--- NOTE | 2020-01-26 11:16 | Nephrology Progress Note ---
Date of Service January 26, 2020 Assessment & Plan (1) Hypertensive urgency: Patient admitted with hypertensive urgency likely in setting of reducing her antihypertensive medications as well as occasional NSAID use. We discussed need to completely avoid NSAIDs as this can elevate blood pressure. Her blood pressure has improved but high in the afternoon. Target systolic blood pressure of 140's or less. Sodium is downtrending -Stop hydrochlorothiazide. -We will start hydralazine 25 mg 3 times daily -We will add amlodipine 5 mg daily today -IV labetalol 5 mg as needed for systolic above 160 (2) Deep vein thrombosis of bilateral lower extremities: Patient with the bilateral calf DVT. She is now on heparin drip. Patient will likely be transitioned to Coumadin with Lovenox taper. (3) AMOR (acute kidney injury): Patient admitted with a creatinine of 1.3 likely due to combination of Lasix and intermittent NSAID use. Creatinine is stable at 0.9 but BUN of 32. We discussed need to avoid NSAIDs. -monitor with daily BMP. -We will consider adding low-dose Lasix tomorrow Admission and Anticipated Discharge Date Admission Date: January 23, 2020 Subjective She feels better today denies any shortness of breath. She was ambulating in the corridor with PT at the time of my visit. Blood pressure is better with systolic in the 150s now. Sodium is downtrending. Review of Systems Review of Systems: All systems reviewed & are unremarkable except as noted in HPI & below Physical Exam Physical Exam: General exam: Appears comfortable, no acute distress HEENT: Pupils are equal and reactive to light Neck: No JVD, neck is supple trachea is midline Respiratory system: Clear breath sounds bilaterally. Gastrointestinal: Abdomen is soft, non distended, non tender, bowel sounds are present CVS: Regular rate and rhythm. No murmurs, rubs or gallops Musculoskeletal: No joint or muscle tenderness Extremities: Non tender, no edema, peripheral pulses are present Neuro: Oriented, no tremors, no focal neurological deficits Skin: No rashes Results & Data ([facility]) Vital Signs (Past 12 Hours) Vital Signs Temp Pulse Resp BP BP Pulse Ox 01/26/20 08:16 158/72 H 01/26/20 07:10 36.6 C 68 16 171/63 H 95 01/26/20 04:30 36.8 C 73 14 159/71 H 95 01/25/20 23:49 36.9 C 71 20 145/69 H 92 Laboratory Results 01/26/20 05:49 01/26/20 05:49 WBC 9.19 RBC 3.56 L MCV 87.4 MCH 29.8 MCHC 34.1 RDW Std Deviation 45.8 RDW Coeff of Dara 14.3 Plt Count 277 MPV 9.7 (1) Deep vein thrombosis of bilateral lower extremities Affected thrombotic vein of extremity: peroneal Chronicity: acute Qualified Code(s): I82.453 - Acute embolism and thrombosis of peroneal vein, bilateral
[2020-01-26] MEDS ORDERED: ENOXAPARIN 100 MG/1ML SYR SQ SCH (15:00)
[2020-01-26] MEDS: WARFARIN SOD 5 MG TAB PO SCH (16:00)
[2020-01-26] MEDS: FLUTICASONE/VILANTEROL 100/25MCG 14 PUFFS/INHALER INH SCH (20:05)
[2020-01-27] MEDS: LEVOTHYROXINE SODIUM 75 MCG TABLET PO SCH (05:37)
[2020-01-27 06:10] LABS: INR 2.1 (0.9-1.1); Partial Thromboplastin Ratio 1.4; Partial Thromboplastin Time 38.4 Seconds (21.0-31.0); Prothrombin Time 21.6 Seconds (9.0-12.0)
[2020-01-27 06:34] LABS: BUN Creatinine Ratio 31.5 (10-20); Calcium 9.4 mg/dl (8.5-10.1); Est GFR (African American) 55.8; Est GFR (Non-African American) 48.2
[2020-01-27] MEDS: PANTOprazole 40 MG TAB PO SCH (09:10)
[2020-01-27] MEDS: AMLODIPINE BESYLATE 5 MG TAB PO SCH (09:10)
--- NOTE | 2020-01-27 10:30 | Nephrology Progress Note ---
Date of Service January 27, 2020 Assessment & Plan (1) Hypertensive urgency: Patient admitted with hypertensive urgency likely in setting of reducing her antihypertensive medications as well as occasional NSAID use. We discussed need to completely avoid NSAIDs as this can elevate blood pressure. Her blood pressure has improved but high in the afternoon. Target systolic blood pressure of 140's or less. Sodium is downtrending -Stop hydrochlorothiazide. -We will continue hydralazine 25 mg 3 times daily -We will continue amlodipine 5 mg daily -From renal standpoint patient can be discharged on the hydralazine and amlodipine. She can follow-up with me in the clinic by telehealth in 1 to 2 weeks (2) Deep vein thrombosis of bilateral lower extremities: Patient with the bilateral calf DVT. She is now on heparin drip. Patient is on Coumadin with Lovenox taper. INR is already therapeutic at 2.1 today. She will likely need a lower dose of Coumadin but will defer to primary team. (3) AMOR (acute kidney injury): Patient admitted with a creatinine of 1.3 likely due to combination of Lasix and intermittent NSAID use. Creatinine is stable at 0.9 but BUN of 32. We discussed need to avoid NSAIDs. -monitor with daily BMP. -No need for diuretics. Patient should not continue Lasix even at home. Admission and Anticipated Discharge Date Admission Date: January 23, 2020 Subjective She feels better this morning. No shortness of breath or dizziness. Blood pressure is better with systolic in the 140s. Review of Systems Review of Systems: All systems reviewed & are unremarkable except as noted in HPI & below Physical Exam Physical Exam: General exam: Appears comfortable, no acute distress HEENT: Pupils are equal and reactive to light Neck: No JVD, neck is supple trachea is midline Respiratory system: Clear breath sounds bilaterally. Gastrointestinal: Abdomen is soft, non distended, non tender, bowel sounds are present CVS: Regular rate and rhythm. No murmurs, rubs or gallops Musculoskeletal: No joint or muscle tenderness Extremities: Non tender, 1+ edema, left leg greater than right, peripheral pulses are present Neuro: Oriented, no tremors, no focal neurological deficits Skin: No rashes Results & Data ([facility]) Vital Signs (Past 12 Hours) Vital Signs Temp Pulse Pulse Resp BP BP Pulse Ox 01/27/20 09:08 75 146/71 H 01/27/20 08:00 36.6 C 60 18 163/71 H 94 01/26/20 23:30 36.9 C 73 16 126/69 93 (1) Deep vein thrombosis of bilateral lower extremities Affected thrombotic vein of extremity: peroneal Chronicity: acute Qualified Code(s): I82.453 - Acute embolism and thrombosis of peroneal vein, bilateral
[2020-01-27] MEDS ORDERED: WARFARIN SOD 2.5 MG TAB PO ONE (12:00)
[2020-01-27] MEDS ORDERED: ENOXAPARIN 100 MG/1ML SYR SQ ONE (12:00)
--- NOTE | 2020-01-27 16:09 | Hospitalist Progress Note ---
Date of Service January 27, 2020 Assessment & Plan (1) Deep vein thrombosis of bilateral lower extremities: Admitted with bilateral lower extremity swelling Ultrasound shows bilateral lower extremity cough vein thrombosis No prior history of blood clots, no known family history of coagulopathy Patient reports of having bilateral lower extremity wrappings/Unna boot 3 weeks ago As per current guideline patient will need total 5 days of parenteral anticoagulation: IV heparin /subcu Lovenox Patient received a total 5 days of parenteral treatment Was on on IV heparin on 01/23/2020-later switched to therapeutic Lovenox on 01/25/20 ;last dose of therapeutic Lovenox today 725 On Coumadin, INR 2.1 today Will need at least 3-6 months of anticoagulation therapy Patient is discharged home, will be followed with coagulation clinic/Coumadin clinic at [facility] Prescription given for lab: PT/INR check on 01/29/2020 (2) Hypertensive urgency: Blood pressure improved Appreciate input from nephrology: Antihypertensive adjusted, Patient will be discharged on Norvasc p.o. daily/added hydralazine 25 mg 3 times daily Target systolic blood pressure 140 or less Will be followed at nephrology clinic in next 1-2 days Hyponatremia: Possible secondary to diuretic use Patient was started on HCTZ during this hospital stay, discontinued Patient is asked not to take her prior home Lasix dose Outpatient follow-up with nephrology, repeat lab: Basic metabolic panel on 01/29/2020 Acute renal failure with CKD stage III Possible secondary to NSAID use, patient has severe arthritis with spinal stenosis has been taking Aleve on a daily basis cr improved to baseline Appreciate input from nephrology Diuretics discontinued Kiel lab work: Basic metabolic panel as outpatient Follow-up with nephrology in clinic Patient is counseled on repeated time to avoid NSAIDs CODE STATUS: Full code DVT prophylaxis: INR therapeutic 2.1 Disposition: Stable to be discharged home today Admission and Anticipated Discharge Date Admission Date: January 23, 2020 Subjective Denies of any discomfort, no complaint of shortness of breath dizzy spell or palpitation Lower extremity swelling has improved, no calf pain No fever or chills, INR therapeutic at 2.1 Stable to be discharged home today Blood pressure reasonably controlled Physical Exam Constitutional: WD/WN, vitals as above no acute distress Eyes: PERRL, conjunctivae normal, anicteric sclerae ENMT: external ear and nose normal, oropharynx normal Neck: trachea midline, no thyromegaly Respiratory: normal respiratory effort, lungs clear to auscultation Cardiovascular: RRR, no murmur, no edema Rate/Rhythm: regular rate and regular rhythm Gastrointestinal (Abdomen): Percussion/Palpation: abdomen soft; abdomen nontender Neurologic: PERRL, EOMI, accommodation nl, no face palsy, no dysarthria Psychiatric: A+Ox3, euthymic affect Results & Data Results & Data ([facility]) Vital Signs (Past 12 Hours) Vital Signs Temp Pulse Pulse Resp BP BP Pulse Ox 01/27/20 15:08 36.4 C L 75 16 145/74 H 96 01/27/20 14:14 76 152/72 H 01/27/20 13:10 68 94/55 L 01/27/20 09:08 75 146/71 H 01/27/20 08:00 36.6 C 60 18 163/71 H 94 (1) Deep vein thrombosis of bilateral lower extremities Affected thrombotic vein of extremity: peroneal Chronicity: acute Qualified Code(s): I82.453 - Acute embolism and thrombosis of peroneal vein, bilateral
--- NOTE | 2020-01-27 16:10 | Discharge Summary ---
Date of Service January 27, 2020 Admission HPI Per Admitting Provider History obtained from patient and records. Medical history significant for hypertension, PVD, hypothyroidism, GERD, hiatal hernia status post surgery, osteoarthritis, IBS, constipation predominant, recurrent hypercalcemia on outpatient blood work, CRI (baseline creatinine 1.3), osteoarthritis. Patient has had bilateral leg swelling for a few months now. No response to outpatient diuretic trials as per PCP notes from last month. Some improvement with leg elevation, compression stockings, PT for lymphedema therapy. Blister development left foot dorsum secondary to wrapping as per patient. Left foot dorsum blister improving. SBP at home in the 2 weeks 120-200s. Patient compliant with medications. Denies unusual stress. Sporadic NSAID intake for body aches. No headache, no chest pain, no S OB. No abdominal pain, diarrhea, dysuria symptoms. Increased leg swelling without fever and chills. Not able to move as much from from knee and shoulder aches as per patient. At the ER, SBP 219/104 at highest. Labetalol 5 mg IV given at the ER. MEDICAL HISTORY: As above. Last mammogram was in 2008 (normal). Last colonoscopy was in 2003 which showed diverticulosis. SURGERIES: She had this, knee surgery. She had recent left shoulder surgery. She also had laparoscopic esophageal fundoplasty. Dental surgery, breast biopsy FAMILY HISTORY: Ovarian cancer, GERD PERSONAL/SOCIAL HISTORY: Nonsmoker. No chronic intake of alcoholic beverages. 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 She lives alone. Principal Diagnosis Blood clots in both legs, High blood pressure Acute renal failure: Resolved Discharge Exam Constitutional WD/WN, vitals as above no acute distress Eyes PERRL, conjunctivae normal, anicteric sclerae ENMT external ear and nose normal, oropharynx normal Neck trachea midline, no thyromegaly Respiratory normal respiratory effort, lungs clear to auscultation Cardiovascular RRR, no murmur, no edema Rate/Rhythm: regular rate and regular rhythm Extremities: + calf tenderness and + edema Gastrointestinal (Abdomen) Percussion/Palpation: abdomen soft; abdomen nontender Neurologic PERRL, EOMI, accommodation nl, no face palsy, no dysarthria Psychiatric A+Ox3, euthymic affect Discharge Data Allergies Allergy/AdvReac Type Severity Reaction Status Date / Time dobutamine AdvReac Mild HEART Verified 01/22/20 20:07 SEIZURE??? Consultations 01/22/20 22:29 ED Decision to Admit Stat 01/23/20 01:46 Consult Case Management - Discharge Planning Routine Consult Nephrology Routine Ordered Studies 01/22/20 19:59 US venous doppler OLIVIA COTTO Urgent Hospital Course (1) Deep vein thrombosis of bilateral lower extremities: Admitted with bilateral lower extremity swelling Ultrasound shows bilateral lower extremity cough vein thrombosis No prior history of blood clots, no known family history of coagulopathy Patient reports of having bilateral lower extremity wrappings/Unna boot 3 weeks ago As per current guideline patient will need total 5 days of parenteral anticoagulation: IV heparin /subcu Lovenox Patient received a total 5 days of parenteral treatment Was on on IV heparin on 01/23/2020-later switched to therapeutic Lovenox on 01/25/20 ;last dose of therapeutic Lovenox today 725 On Coumadin, INR 2.1 today Will need at least 3-6 months of anticoagulation therapy Patient is discharged home, will be followed with coagulation clinic/Coumadin clinic at [facility] Prescription given for lab: PT/INR check on 01/29/2020 (2) Hypertensive urgency: Blood pressure improved Appreciate input from nephrology: Antihypertensive adjusted, Patient will be discharged on Norvasc p.o. daily/added hydralazine 25 mg 3 times daily Target systolic blood pressure 140 or less Will be followed at nephrology clinic in next 1-2 days Hyponatremia: Possible secondary to diuretic use Patient was started on HCTZ during this hospital stay, discontinued Patient is asked not to take her prior home Lasix dose Outpatient follow-up with nephrology, repeat lab: Basic metabolic panel on 01/29/2020 Acute renal failure with CKD stage III Possible secondary to NSAID use, patient has severe arthritis with spinal stenosis has been taking Aleve on a daily basis cr improved to baseline Appreciate input from nephrology Diuretics discontinued Kiel lab work: Basic metabolic panel as outpatient Follow-up with nephrology in clinic Patient is counseled on repeated time to avoid NSAIDs CODE STATUS: Full code DVT prophylaxis: INR therapeutic 2.1 Disposition: Stable to be discharged home today Total Time Total Time Spent Total Time Spent (In Minutes): 35mins Total Time Includes: Examination of the Patient, Discharge Planning, Medication Reconciliation and Communication With Other Providers Discharge Plan Discharge Items Patient Disposition: Home - Home Health Services Reason For Visit: HTN URGENCY Discharge Diagnosis: BLOOD CLOTS IN BOTH LEGS HYPERTENSION ACUTE RENAL FAILURE -RESOLVED Condition on Discharge: Good Activity: As commented below Activity Comment: TOLERATED Non-emergency contact: Primary Care Provider Call non-emergency contact if: you have any medication questions Follow-up/Referrals: Rudi Carter MD [Primary Care Provider] - 01/31/20 11:00 am (Hospital follow up with Dr Chanda Bolanos on 01/31/20 @ 11 am ( Dr Lucero schedule is full ) ) Oneal Jensen MD [Physician] - ( follow-up with Nephrology in the clinic by telehealth in 1 to 2 weeks please call office to schedule an appointment ) Diet: Heart Healthy and Low Sodium (2gm) Ambulatory Orders: Basic Metabolic Panel (Routine) Timeframe: 20200129 Location: Determined by Patient Ordered By: Paula Arnold Prothrombin Time INR (Routine) Timeframe: 20200129 Location: Determined by Patient Ordered By: Paula Arnold Addtl Attending Provider Instructions: PLEASE HAVE HYPERCOAGULABLE WORK UP AND HEME ONC FOLLOW UP IF NEEDED TO DECIDE LENGTH OF ANTICOAGULATION TREATMENT COUMADIN DOSE 2.5 MG -1 TABLET DAILY ( START FROM TODAY ) NO NEED TO HAVE LOVENOX INJECTION AT HOME -YOU COMPLETED THE DOSE OF 5 DAYS REPEAT LAB CHECK ON Wednesday01/29/20 YOU WILL BE FOLLOWED WITH [facility] COUMADIN /COAGULATION CLINIC DO NOT TAKE LASIX AND POTASSIUM SUPPLEMENT follow-up with Nephrology in the clinic by telehealth in 1 to 2 weeks please call office to schedule an appointment Do not take high-dose aspirin, Aleve, Advil, Motrin, ibuprofen, naproxen-any of the [id number] pain medications belonging to group of drugs called NSAIDs Will cause kidney function to compromise, and increases bleeding risk in your stomach while taking Coumadin While purchasing [id number] pain medications, with any concern or confusion regarding the ingredients, please discuss with the pharmacy and mention that you are not supposed to take NSAIDs Pharmacy should be able to guide you for correct pain medication without any combination or intermittent of NSAIDs Pending Studies at Discharge: Yes Studies:: LAB work : BASIC METABOLIC PANEL PT/INR ON Wednesday01/29/20 Stand-Alone Forms: My [facility], Smoking Cessation Medications and DC Order Prescriptions: New hydralazine 25 mg Tablet 25 mg PO TID 30 Days Qty: 90 RF: 2 amlodipine [Norvasc] 5 mg Tablet 5 mg PO QAM 30 Days Qty: 30 RF: 2 warfarin [Coumadin] 2.5 mg tablet 2.5 mg PO DAILY Qty: 30 RF: 2 Continued biotin 1 mg capsule 1 mg PO DAILY RF: 0 levothyroxine 75 mcg Tablet 75 mcg PO QAM RF: 0 cholecalciferol (vitamin D3) [Vitamin D3] 1,000 unit Tablet 1,000 unit PO QAM RF: 0 budesonide-formoterol [Symbicort] 160-4.5 mcg/actuation Hfa Aerosol Inhaler 2 puff INHALATION HS RF: 0 omeprazole 20 mg Tablet,Delayed Release (Dr/Ec) 20 mg PO QAM RF: 0 Systane (PF) 0.4-0.3 % Dropperette 1 drp OPHTHALMIC (EYE) DIRECTED PRN (Reason: Dry Eyes) RF: 0 Ocuvite Eye Health 50 mg-15 unit- 4.5 mg-2.5 mg Tablet,Chewable 2 tab PO DAILY RF: 0 Discontinued amlodipine 2.5 mg Tablet 2.5 mg PO BID RF: 0 potassium chloride [Klor-Con M20] 20 mEq tablet,ER particles/crystals 20 meq PO DAILY RF: 0 furosemide 20 mg tablet 20 mg PO DAILY PRN (Reason: Edema) RF: 0 Discharge Orders: Discharge Order (Routine); Ordered 01/27/20 Ordered By: Paula Campuzano/Other Patient Handouts: Tips for Using Less Salt, Low-Salt Choices, DVT Dc, Diet Low Salt Dc, Warfarin tablets Admission Data Admit Date/Time: 01/23/20 00:58 Attending Provider: Paula Arnold Admit Provider: Victor M Lilly Primary Care Provider: Rudi Carter Other Providers: Victor M Lilly ; Estefany Conway Other Interventions: Discharge Summary Assessment (RN) Last Done: 01/27/20 11:34 DC Date/Time DO NOT enter until pt leaves facility: 01/27/20 15:36
== END 2020-01-27 15:36 | disposition home health service (06) | DRG 300 ==
LOC: ED 17:32 → SUATTDRO 01-23 00:58 → 2S 01-23 00:58 → 3N 01-24 16:05